=== PATIENT | male | born 1970 | race Caucasian/White ===

== ENCOUNTER 2016-12-30 21:54 | Emergency (ER) | payer OTHER ==
[2016-12-30 22:17] VITALS: BP 142/86; PULSE 68; TEMP 98.1; BMI 26.7
[2016-12-31] MEDS ORDERED: METHOCARBAMOL 500 MG TABLET PO ONE
[2016-12-31] MEDS ORDERED: METHOCARBAMOL 500 MG TABLET ONE (00:10)
[2016-12-31] MEDS ORDERED: IBUPROFEN 600 MG TABLET (FP) PO ONE ×2 (00:10)
--- NOTE | 2016-12-31 01:59 | PDOC ---
History of Present Illness - General History Source: Patient Exam Limitations: No Limitations - History of Present Illness Initial Comments: 12/31/16 02:01 The patient is a 46 year old male with significant past medical history of hyperlipidemia who presents to the ED with 3 weeks of right scapular pain. Patient reports his pain now progresses to the right arm with associated numbness. Denies slurred speech or changes in vision. Denies any trauma to the area. Denies any swelling, redness, or rash. Denies lightheadedness, diaphoresis , SOB, chest pain, palpitations, jaw pain, nausea, or vomiting. 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 The patient denies fever, chills, cough, abdominal pain, and diarrhea. Allergies: NKDA Social History: No alcohol, tobacco, or drug use reported. Past Surgical History: None reported PCP: None reported <Regina Morley - Last Filed: 12/31/16 02:01> <Kezia Breaux - Last Filed: 01/09/17 00:24> - General Chief Complaint: Pain Stated Complaint: PAIN Time Seen by Provider: 12/30/16 23:16 Past History <Regina Morley - Last Filed: 12/31/16 02:01> - Past Medical History Other medical history: Pt denies - Immunization History Immunization Up to Date: No - Psycho/Social/Smoking Cessation Hx Anxiety: No Suicidal Ideation: No Smoking History: Never smoked Have you smoked in the past 12 months: No Information on smoking cessation initiated: No Hx Alcohol Use: No Drug/Substance Use Hx: No Substance Use Type: None <Kezia Breaux - Last Filed: 01/09/17 00:24> - Past Medical History Allergies/Adverse Reactions: Allergies Allergy/AdvReac Type Severity Reaction Status Date / Time No Known Allergies Allergy Verified 12/30/16 22:11 Home Medications: Ambulatory Orders NK [No Known Home Medication] 12/31/16 Review of Systems - Review of Systems Able to Perform ROS?: Yes Comments:: 12/31/16 02:01 CONSTITUTIONAL: Absent: fever, no chills, no fatigue EYES: Absent: visual changes ENT: Absent: ear pain, no sore throat CARDIOVASCULAR: Absent: chest pain, no palpitations RESPIRATORY: Absent: cough, no SOB GI: Absent: abdominal pain, no nausea, no vomiting, no diarrhea GENITOURINARY: Absent: dysuria, no frequency, no hematuria MUSCULOSKELETAL: +right scapula pain, right arm pain and numbness Absent: no arthralgia SKIN: Absent: rash NEURO: Absent: headache <Regina Morley - Last Filed: 12/31/16 02:01> *Physical Exam - Vital Signs Last Vital Signs Temp Pulse Resp BP Pulse Ox 98.1 F 68 20 142/86 98 12/30/16 22:12 12/30/16 22:12 12/30/16 22:12 12/30/16 22:12 12/30/16 22:12 - Physical Exam Comments: 12/31/16 02:01 GENERAL: Well-appearing, well-nourished. No apparent distress. HEENT: Normocephalic, atraumatic. PERRL, EOM intact. CARDIOVASCULAR: Normal S1, S2. Regular rate and rhythm. PULMONARY: Clear to auscultation bilaterally. ABDOMEN: Soft, non-distended, non-tender. EXTREMITIES: Normal ROM in all four extremities. No gross deformities. MUSCULOSKELETAL: Muscle knot medial and caudal to his right scapula SKIN: Warm, dry. No rash NEUROLOGICAL: No focal neurological deficits. <Regina Morley - Last Filed: 12/31/16 02:01> - Vital Signs Last Vital Signs Temp Pulse Resp BP Pulse Ox 98.1 F 68 20 142/86 98 12/30/16 22:12 12/30/16 22:12 12/30/16 22:12 12/30/16 22:12 12/30/16 22:12 <Kezia Breaux - Last Filed: 01/09/17 00:24> ED Treatment Course - Medications Given in the ED: ED Medications Discontinued Medications Generic Name Dose Route Start Last Admin Trade Name Freq PRN Reason Stop Dose Admin Ibuprofen 600 mg 12/31/16 00:00 12/31/16 00:07 Motrin - PO 12/31/16 00:01 600 mg ONCE ONE Administration Methocarbamol 1,000 mg 12/31/16 00:00 12/31/16 00:08 Robaxin - PO 12/31/16 00:01 1,000 mg ONCE ONE Administration <Regina Morley - Last Filed: 12/31/16 02:01> - RADIOLOGY Radiology Studies Ordered: Category Date Time Status SCAPULA [RAD] Stat Radiology 12/30/16 23:50 Stop Req - Medications Given in the ED: ED Medications Discontinued Medications Generic Name Dose Route Start Last Admin Trade Name Rolanda PRN Reason Stop Dose Admin Ibuprofen 600 mg 12/31/16 00:00 12/31/16 00:07 Motrin - PO 12/31/16 00:01 600 mg ONCE ONE Administration Methocarbamol 1,000 mg 12/31/16 00:00 12/31/16 00:08 Robaxin - PO 12/31/16 00:01 1,000 mg ONCE ONE Administration <Kezia Breaux - Last Filed: 01/09/17 00:24> *DC/Admit/Observation/Transfer - Attestations Scribe Attestion: 12/31/16 02:01 Documentation prepared by Regina Morley, acting as medical staff coordinator for Kezia Breaux MD/DO. <Regina Morley - Last Filed: 12/31/16 02:01> - Discharge Dispostion Admit: No <Kezia Breaux - Last Filed: 01/09/17 00:24> Diagnosis at time of Disposition: Muscle spasm of back - Discharge Dispostion Disposition: HOME Condition at time of disposition: Stable - Patient Instructions Printed Discharge Instructions: DI for Back Spasm
[2016-12-31] MEDS ORDERED: diphenhydrAMINE HCL 25 MG CAPSULE (FP) PO ONE ×2 (02:21→02:22)
== END 2016-12-31 02:04 | disposition home or self-care (01) ==
LOC: JER 21:54
DX: M62.830 Muscle spasm of back (principal)
CPT/HCPCS: 99281-25

== ENCOUNTER 2017-12-13 14:23 | Emergency (ER) | payer OTHER ==
[2017-12-13 14:29] VITALS: TEMP 97.8; BMI 26.6
[2017-12-13] MEDS ORDERED: ASPIRIN 81 MG CHEWABLE TABLETS PO ONE (14:29)
--- NOTE | 2017-12-13 14:29 | PDOC ---
Rapid Medical Evaluation Time Seen by Provider: 12/13/17 14:25 Medical Evaluation: Allergies Allergy/AdvReac Type Severity Reaction Status Date / Time No Known Allergies Allergy Verified 12/30/16 22:11 12/13/17 14:25 I have performed a brief in-person evaluation of this patient. The patient presents with a chief complaint of: dizziness, midsternal intermittent chest pain x 3 days, worse today, denies fever, nausea, denies PMH , fm hx of CAD Pertinent physical exam findings: VSS I have ordered the following: labs, ekg, cxr The patient will proceed to the ED for further evaluation. Discharge Disposition - Diagnosis Chest pain - Referrals - Patient Instructions - Post Discharge Activity
[2017-12-13] MEDS ORDERED: ASPIRIN 81 MG CHEWABLE TABLETS ONE (14:55)
--- NOTE | 2017-12-13 15:17 | EKG ---
Test Reason : Blood Pressure : / mmHG Vent. Rate : 071 BPM Atrial Rate : 071 BPM P-R Int : 160 ms QRS Dur : 094 ms QT Int : 380 ms P-R-T Axes : 056 059 048 degrees QTc Int : 412 ms NORMAL SINUS RHYTHM POSSIBLE LEFT ATRIAL ENLARGEMENT BORDERLINE ECG NO PREVIOUS ECGS AVAILABLE Confirmed by MARIA L MELGOZA, TEJAL ([id number]) on 12/13/2017 3:17:19 PM Referred By: Confirmed By:TEJAL LISA MD
[2017-12-13 15:18] LABS: BASO % 0.5 % (0-2.0); EOS % 1.2 % (0-4.5); HEMATOCRIT 44.6 % (35.4-49); HEMOGLOBIN 15.6 GM/dL (11.7-16.9); LYMPH % 33.3 % (8-40); MCH 31.8 pg (25.7-33.7); MCHC 34.8 g/dl (32.0-35.9); MEAN CELL VOLUME 91.1 fl (80-96); MEAN PLT VOLUME 8.8 fl (7.5-11.1); MONO % 6.9 % (3.8-10.2); NEUT % 58.1 % (42.8-82.8); PLATELET COUNT 204 K/MM3 (134-434); RDW 13.1 % (11.9-15.9); WHITE BLOOD COUNT 5.7 K/mm3 (4.0-10.0)
[2017-12-13 15:28] LABS: INR 0.98 (0.82-1.09); PROTHROMBIN TIME (PATIENT) 11.1 SEC (9.98-11.88)
[2017-12-13 15:37] LABS: ALBUMIN 4.5 g/dl (3.4-5.0); ANION GAP 6 (8-16); BILIRUBIN,TOTAL 0.3 mg/dL (0.2-1.0); BLOOD UREA NITROGEN 16 mg/dL (7-18); CALCIUM 8.7 mg/dL (8.5-10.1); CHLORIDE 105 mmol/L (98-107); CO2 27 mmol/L (21-32); CREATININE 0.9 mg/dL (0.7-1.3); GLUCOSE,RANDOM 122 mg/dL (74-106); POTASSIUM 4.2 mmol/L (3.5-5.1); SGOT/AST 19 U/L (15-37); SGPT/ALT 34 U/L (12-78); SODIUM 138 mmol/L (136-145)
[2017-12-13 15:41] LABS: ALK PHOS 59 U/L (45-117); TOT PROT 7.4 g/dl (6.4-8.2)
[2017-12-13] MEDS ORDERED: SODIUM CHLORIDE 1,000 ML IV STA (15:54)
--- NOTE | 2017-12-13 15:56 | PDOC ---
History of Present Illness - General Chief Complaint: Chest Pain Stated Complaint: CHEST PAIN,DIZZINESS Time Seen by Provider: 12/13/17 14:25 - History of Present Illness Initial Comments: 12/13/17 17:58 The patient is a 47 year old male with no significant PMH who presents for evaluation of chest pain. The patient reports a 3 day history of intermittent sharp, burning substernal chest pain with has been increasing in frequency prompting his presentation to the ED for evaluation. He notes that his father had an ID at age 45. The patient does not noted a relation of the pain with excertion. The patient otherwise denies fevers, chills, SOB, nausea, vomiting, abdominal pain, or changes with urination or bowel movements. Past History - Past Medical History Allergies/Adverse Reactions: Allergies Allergy/AdvReac Type Severity Reaction Status Date / Time Penicillins Allergy Verified 12/13/17 14:29 Home Medications: Ambulatory Orders NK [No Known Home Medication] 12/31/16 COPD: No - Immunization History Immunization Up to Date: No - Suicide/Smoking/Psychosocial Hx Smoking History: Never smoked Have you smoked in the past 12 months: No Information on smoking cessation initiated: No Hx Alcohol Use: No Drug/Substance Use Hx: No Substance Use Type: None Review of Systems - Review of Systems Comments:: 12/13/17 18:00 Constitutional: No fevers, chills, fatigue, malaise HEENT: No Rhinorrhea, nasal congestion, visual changes Cardiovascular: Chest pain. No syncope, palpitations, lightheadedness Respiratory: No Cough, SOB, Hemoptysis, Gastrointestinal: No Abdominal pain, Nausea, Vomiting, Constipation, Diarrhea, Melena Genitourinary: No Dysuria, Frequency, Urgency, Hesitancy, Hematuria, Flank pain Musculoskeletal: No Myalgia, arthralgia Skin: No rashes, itching, bruising, pallor Neurologic: No Headache, Dizziness, Numbness, Weakness, or Tingling Psychiatric: No Hallucinations. No SI or HI *Physical Exam - Vital Signs Last Vital Signs Temp Pulse Resp BP Pulse Ox 97.8 F 75 16 125/91 100 12/13/17 14:26 12/13/17 14:26 12/13/17 14:26 12/13/17 14:26 12/13/17 14:26 - Physical Exam Comments: 12/13/17 18:01 General Appearance: Nourished. No Apparent Distress HEENT: EOMI, IZZY. No Pharyngeal Erythema, Tonsillar Exudate, Tonsillar Erythema Neck: No Cervical Lymphadenopathy Respiratory/Chest: Lungs Clear, Normal Breath Sounds. No Crackles, Rales, Rhonchi, Wheezing Cardiovascular: Regular Rhythm, Regular Rate. No Murmur, Gallops, Rubs Gastrointestinal/Abdominal: Normal Bowel Sounds, Soft. No Guarding, Rebound, Tenderness Musculoskeletal: No CVA Tenderness Extremity: Normal Capillary Refill Integumentary: Normal Color, Dry, Warm Neurologic: Fully Oriented, Alert, Normal Mood/Affect, Normal Response, Heart Score/ECG Review - History History: Moderately suspicious - Electrocardiogram EKG: Normal - Age Age: 45-65 - Risk Factors Risk Factors Heart Score: Yes Positive family hx of cardiac disease Based on the list above the patient has:: 1-2 risk factors - Troponin Troponin: </= normal limit - Score Heart Score - Total: 3 ED Treatment Course - LABORATORY CBC & Chemistry Diagram: 12/13/17 14:47 12/13/17 14:47 - ADDITIONAL ORDERS Additional order review: Laboratory Results 12/13/17 12/13/17 14:47 14:47 PT with INR 11.10 INR 0.98 Sodium 138 Potassium 4.2 Chloride 105 Carbon Dioxide 27 Anion Gap 6 L BUN 16 Creatinine 0.9 Creat Clearance w eGFR > 60 Random Glucose 122 H Calcium 8.7 Magnesium 2.0 Total Bilirubin 0.3 AST 19 ALT 34 Alkaline Phosphatase 59 Creatine Kinase 126 Troponin I < 0.02 Total Protein 7.4 Albumin 4.5 12/13/17 14:47 RBC 4.90 MCV 91.1 MCHC 34.8 RDW 13.1 MPV 8.8 Neutrophils % 58.1 D Lymphocytes % 33.3 D Monocytes % 6.9 Eosinophils % 1.2 Basophils % 0.5 - Medications Given in the ED: ED Medications Discontinued Medications Generic Name Dose Route Start Last Admin Trade Name Freq PRN Reason Stop Dose Admin Aspirin 162 mg 12/13/17 14:29 12/13/17 14:57 Asa - PO 12/13/17 14:30 162 mg ONCE ONE Administration Medical Decision Making - Medical Decision Making 12/13/17 18:01 The patient is a 47 year old male with no significant PMH who presents for evaluation of chest pain. Differential includes but is not limited to: ACS, Arrhythmia, Musculoskeletal, Infectious, Metabolic derangement. Given the patient's history and physical exam, it is likely the patient's symptoms are musculoskeletal in nature. However, given his family history, we will obtain a cbc, cmp, troponin, ekg, and chest plain film as well as a 2nd troponin to evaluate further. We will continue to monitor and reassess in the meantime and treat with iv fluids and pepcid. 12/13/17 19:02 CBC, cmp, initial troponin is unremarkable. Chest plain film is unremarkable as read by our radiologist. The patient is pending second troponin prior to dispo. *DC/Admit/Observation/Transfer Diagnosis at time of Disposition: Chest pain Qualifiers: Chest pain type: unspecified Qualified Code(s): R07.9 - Chest pain, unspecified - Referrals Referrals: Rich Moses MD [Staff Physician] - Jessica Ragsdale [Primary Care Provider] - - Patient Instructions Printed Discharge Instructions: DI for Chest Pain Additional Instructions: Please return to the ER if you experience concerning or worsening symptoms including worsening pain, difficulty breathing, or vomiting. Your lab results were normal here in the ER. Your heart tracing was also normal. It is extremely important that you call to schedule a follow up appointment with our wool fleece sorter (Dr. Moses) within 2-3 days to discuss your ER visit and further management of your symptoms. - Post Discharge Activity
[2017-12-13] MEDS ORDERED: FAMOTIDINE 20 MG/50 ML IVPB 20 MG/50 ML MG IVPB ONE ×2 (16:00→16:17)
--- NOTE | 2017-12-13 17:43 | PDOC ---
Attending Attestation - HPI HPI: 12/13/17 18:30 The patient is a 47 year old male with no significant past medical history who presents to the ED complaining of 3 days of intermittent sternal chest pain, worse today. Pain comes on randomly with exertion or at rest. Describes pain as burning or pinching. Denies current pain and no pain thus far in the ED. Denies trauma. Denies associated SOB, diaphoresis. No lightheadedness, weakness or palpitations. No fever or chills. No nausea, vomiting, or diarrhea. No headache or blurred vision. - Physicial Exam PE: 12/13/17 18:30 GENERAL: Awake, alert, and fully oriented, in no acute distress HEAD: No signs of trauma EYES: PERRLA, EOMI, sclera anicteric, conjunctiva clear ENT: Auricles normal inspection, hearing grossly normal, nares patent, oropharynx clear without exudates. Moist mucosa NECK: Normal ROM, supple, no lymphadenopathy, JVD, or masses LUNGS: Breath sounds equal, clear to auscultation bilaterally. No wheezes, and no crackles HEART: Regular rate and rhythm, normal S1 and S2, no murmurs, rubs or gallops ABDOMEN: Soft, nontender, normoactive bowel sounds. No guarding, no rebound. No masses EXTREMITIES: Normal range of motion, no edema. No clubbing or cyanosis. No cords, erythema, or tenderness BACK: No midline spinal tenderness in cervical/thoracic/lumbar region NEUROLOGICAL: Normal speech, cranial nerves intact, negative pronator drift, 5/ 5 strength in all 4 extremities, normal sensation to light touch in all 4 extremities, normal cerebellar exam, normal gait, normal reflexes and tone SKIN: Warm, Dry, normal turgor, no rashes or lesions noted. Documentation prepared by Shantal Munoz, acting as medical orderly for Brian Gottlieb MD. <Shantal Munoz - Last Filed: 12/13/17 18:30> - Resident Resident Name: Geovanny Shaikh - ED Attending Attestation I have performed the following: I have examined & evaluated the patient, The case was reviewed & discussed with the resident, I agree w/resident's findings & plan, Exceptions are as noted - Medical Decision Making 12/13/17 17:41 47-year-old male with no significant past medical history presents the emergency department with intermittent burning/pinching sternal chest pain. Vitals unremarkable. Exam completely normal. EKG is nonischemic. Heart score is 2 due to family history. Will obtain labs including 2 troponins and chest x-ray and reassess. 12/13/17 19:03 Labs/CXR unremarkable. Rpt trop pending. Pt remains CP free in ED. Pt signed out to Dr. Baez for further mgmt/dispo. <Brian Gottlieb - Last Filed: 12/13/17 19:04> Heart Score/ECG Review #1 12/13/17 17:42 Twelve-lead EKG was performed and reviewed by me. Normal sinus rhythm, rate 71. Normal axis and intervals. No ST elevations or T-wave inversions. <Brian Gottlieb - Last Filed: 12/13/17 19:04>
--- NOTE | 2017-12-13 19:13 | PDOC ---
*Physical Exam - Vital Signs Last Vital Signs Temp Pulse Resp BP Pulse Ox 97.8 F 75 16 125/91 100 12/13/17 14:26 12/13/17 14:26 12/13/17 14:26 12/13/17 14:26 12/13/17 14:26 - Physical Exam Comments: 12/13/17 19:12 Pt signed out to me by Dr. Shaikh. 47yo M with subjective chest pain. EKG negative. Initial Trop negative. Pt had father who had first [place] at age 45 and pt today turned 47yo. awaiting second troponin. If negative can dispo home. ED Treatment Course - LABORATORY CBC & Chemistry Diagram: 12/13/17 14:47 12/13/17 14:47 - ADDITIONAL ORDERS Additional order review: Laboratory Results 12/13/17 12/13/17 14:47 14:47 PT with INR 11.10 INR 0.98 Sodium 138 Potassium 4.2 Chloride 105 Carbon Dioxide 27 Anion Gap 6 L BUN 16 Creatinine 0.9 Creat Clearance w eGFR > 60 Random Glucose 122 H Calcium 8.7 Magnesium 2.0 Total Bilirubin 0.3 AST 19 ALT 34 Alkaline Phosphatase 59 Creatine Kinase 126 Troponin I < 0.02 Total Protein 7.4 Albumin 4.5 12/13/17 14:47 RBC 4.90 MCV 91.1 MCHC 34.8 RDW 13.1 MPV 8.8 Neutrophils % 58.1 D Lymphocytes % 33.3 D Monocytes % 6.9 Eosinophils % 1.2 Basophils % 0.5 - Medications Given in the ED: ED Medications Discontinued Medications Generic Name Dose Route Start Last Admin Trade Name Freq PRN Reason Stop Dose Admin Aspirin 162 mg 12/13/17 14:29 12/13/17 14:57 Asa - PO 12/13/17 14:30 162 mg ONCE ONE Administration Famotidine/Sodium Chloride 20 mg in 50 mls @ 100 mls/hr 12/13/17 16:00 16:20 Pepcid 20 Mg Premixed Ivpb - IVPB 12/13/17 16:29 100 mls/hr ONCE ONE Administration Sodium Chloride 1,000 mls @ 1,000 mls/hr 12/13/17 15:54 12/13/17 16:20 Normal Saline - IV 12/13/17 16:53 1,000 mls/hr ASDIR STA Administration Medical Decision Making - Medical Decision Making 12/13/17 19:31 Second troponin negative. Can discharge patient back home. *DC/Admit/Observation/Transfer Diagnosis at time of Disposition: Chest pain Qualifiers: Chest pain type: unspecified Qualified Code(s): R07.9 - Chest pain, unspecified - Discharge Dispostion Disposition: HOME Condition at time of disposition: Good Admit: No - Referrals Referrals: Rich Moses MD [Staff Physician] - Jessica Ragsdale [Primary Care Provider] - - Patient Instructions Printed Discharge Instructions: DI for Chest Pain Additional Instructions: Please return to the ER if you experience concerning or worsening symptoms including worsening pain, difficulty breathing, or vomiting. Your lab results were normal here in the ER. Your heart tracing was also normal. It is extremely important that you call to schedule a follow up appointment with our office services coordinator (Dr. Moses) within 2-3 days to discuss your ER visit and further management of your symptoms. - Post Discharge Activity
[2017-12-13 19:40] VITALS: BP 147/94; PULSE 68
[2017-12-13] MEDS ORDERED: ACETAMINOPHEN 325 MG TABLET (FP) PO ONE (19:41)
[2017-12-13] MEDS ORDERED: ACETAMINOPHEN 325 MG TABLET (FP) ONE (19:42)
== END 2017-12-13 19:53 | disposition home or self-care (01) ==
LOC: JER 14:23
PROC: 3E033GC Introduction of Other Therapeutic Substance into Peripheral Vein, Percutaneous Approach (ICD-10-PCS; principal; 2017-12-13)
PROC: 3E0337Z Introduction of Electrolytic and Water Balance Substance into Peripheral Vein, Percutaneous Approach (ICD-10-PCS; 2017-12-13)
DX: R07.9 Chest pain, unspecified (principal)
CPT/HCPCS: 36415; 71046-TC-FY; 80053; 82550; 83735; 84484; 85025; 85610; 93005; 93010; 96361; 96365; 99284-25; J7030